=== PATIENT | male | born 1960 | race Caucasian/White ===

== ENCOUNTER 2020-11-09 13:55 | Outpatient (CLI) | payer OTHER | END 2020-11-09 14:51 | disposition home or self-care (01) | LOC: NUCLEAR 13:55 | DX: I50.22 Chronic systolic (congestive) heart failure (principal) ==

== ENCOUNTER 2020-11-10 09:50 | Outpatient (CLI) | payer OTHER | END 2020-11-10 10:09 | disposition home or self-care (01) | LOC: TOM 09:50 | PROVIDERS: ATTEND Internal Medicine | DX: K76.0 Fatty (change of) liver, not elsewhere classified (principal); N40.0 Benign prostatic hyperplasia without lower urinary tract symptoms; R10.84 Generalized abdominal pain; J45.998 Other asthma; J06.9 Acute upper respiratory infection, unspecified; I70.8 Atherosclerosis of other arteries ==